=== PATIENT | male | born 2000 | race Two or more races ===

== ENCOUNTER 2023-10-18 19:53 | Emergency (ER) | payer OTHER ==
[~2023-10-18] VITALS: Ht 177.8 cm; Wt 84.0 kg
[2023-10-18] MEDS: LORazepam 2 MG/ML VIAL IM ONE (23:39)
[2023-10-18] MEDS: DiphenhydrAMINE HCL 50 MG/ML VIAL IM ONE (23:40)
[2023-10-18] MEDS: HALOPERIDOL LACTATE 5 MG/ML VIAL IM ONE (23:40)
[2023-10-18 23:52] LABS: ANION GAP 17 mmol/L (8-16); CALCIUM, TOTAL 9.1 mg/dL (8.8-10.5); CARBON DIOXIDE 22 mmol/L (22-29); CHLORIDE 101 mmol/L (98-107); GLOMERULAR FILTR. RATE CALC > 60 mL/min (>60); GLUCOSE,RANDOM 105 mg/dL (70-110); POTASSIUM 3.5 mmol/L (3.5-5.1); SODIUM SERUM 140 mmol/L (136-145); UREA NITROGEN, BLOOD 12 mg/dL (7-18)
[2023-10-18 23:56] LABS: ALCOHOL, BLOOD (SERUM) 111 mg/dL (0-10)
[2023-10-18 23:58] LABS: ALANINE AMINOTRANSFERASE 28 U/L (12-78); ALBUMIN 4.2 g/dL (3.4-5.0); ALKALINE PHOSPHATASE 82 U/L (46-116); ASPARTATE AMINOTRANSFERASE 21 U/L (15-37); BILIRUBIN,TOTAL 1.1 mg/dL (0.1-1.0); TOTAL PROTEIN, SERUM 7.8 g/dL (6.4-8.2)
[2023-10-18 23:59] LABS: BASOPHILS % (AUTO) 0.5 % (0.0-2.0); EOSINOPHILS % (AUTO) 0.1 % (1.0-6.0); HEMATOCRIT 40.5 % (41-53); HEMOGLOBIN 13.9 g/dL (13.5-17.5); LYMPHOCYTES # (AUTO) 1.7 K/uL (1.0-4.8); LYMPHOCYTES % (AUTO) 18.2 % (22.0-44.0); MEAN CORPUSCULAR HGB CONC 34.3 G/dL (31.0-37.0); MEAN CORPUSCULAR VOLUME 90 fL (80-100); MONOCYTES # (AUTO) 0.5 K/uL (0.1-1.0); NEUTROPHILS # (AUTO) 7.3 K/uL (1.8-7.7); NEUTROPHILS % (AUTO) 76.2 % (40.0-70.0); PLATELET COUNT (AUTO) 211 K/uL (150-450); RED BLOOD CELL COUNT(AUTO) 4.48 MIL/uL (4.50-5.90); RED CELL DISTRIBUTION WIDTH 13.2 % (11.5-14.5); WHITE BLOOD COUNT (AUTO) 9.6 K/uL (4.5-11.0)
[2023-10-19] MEDS ORDERED: LOSA25TA41 PO (00:44)
[2023-10-19] MEDS ORDERED: ATOR10TA69 PO (00:44)
[2023-10-19] MEDS ORDERED: GLIM2TAB30 PO (00:44)
[2023-10-19] MEDS ORDERED: TAMS-1 PO (00:44)
[2023-10-19] MEDS ORDERED: ASPI-1444 PO (00:45)
[2023-10-19 02:11] LABS: COVID AG,FIA SOURCE NASAL SWAB
[2023-10-19 02:40] LABS: SARS-COV2 (COVID) ANTIGEN,FIA Negative (Negative)
[2023-10-19 05:04] VITALS: BP 106/54; PULSE 92; RESP 16; TEMP 98.4
== END 2023-10-19 07:04 ==
LOC: EMS 19:56
DX: S61.011A Laceration without foreign body of right thumb without damage to nail, initial encounter (principal); F23 Brief psychotic disorder; F10.10 Alcohol abuse, uncomplicated; R45.851 Suicidal ideations; Z20.822 Contact with and (suspected) exposure to COVID-19; W26.8XXA Contact with other sharp object(s), not elsewhere classified, initial encounter; Y93.89 Activity, other specified; Y92.89 Other specified places as the place of occurrence of the external cause; Y99.8 Other external cause status; Y90.9 Presence of alcohol in blood, level not specified
CPT/HCPCS: 99291; 87426; 80053; 85025; 36415; 96372; G0480; J1200; J1630; J2060